=== PATIENT | female | born 1950 | race Caucasian/White ===

== ENCOUNTER 2017-06-27 09:27 | Day surgery (SDC) | payer MEDICARE ==
[~2017-06-27] VITALS: Ht 160 cm; Wt 103.9 kg
[~2017-06-27 09:27] MED LIST: 5-Htp50 MG; Alavert D-12 A1 EACH; Amitriptyline150 MG; CALCIUM CITRAT480 GM; CELE200; CHOL10002; CYAN500; Coq-1030 MG; Dapsone25 MG; EPIPEN 2-P0.3 MG/0.3; FLUO.01TC; MONT10T; OMEG1CAP30; PROAIR RESPICL90 MCG; ROSU10TA; SYNTHROID175 MCG; TELM80
== END 2017-06-27 12:20 | disposition home or self-care (01) ==
LOC: RAD 09:27 → ORSCSDS 09:27
PROVIDERS: Surgery
PROC: 0DJD8ZZ Inspection of Lower Intestinal Tract, Via Natural or Artificial Opening Endoscopic (ICD-10-PCS; principal; 2017-06-27 11:00)
DX: Z12.11 Encounter for screening for malignant neoplasm of colon (principal); I10 Essential (primary) hypertension; E78.5 Hyperlipidemia, unspecified; E03.9 Hypothyroidism, unspecified; E66.01 Morbid (severe) obesity due to excess calories; Z68.41 Body mass index [BMI] 40.0-44.9, adult; Z79.899 Other long term (current) drug therapy
CPT/HCPCS: 74270

== ENCOUNTER 2024-07-07 10:50 | Day surgery (SDC) | payer OTHER ==
[~2024-07-07] VITALS: Ht 162.6 cm; Wt 91.7 kg
[~2024-07-07 10:50] MED LIST changes: +Balanced Salt Epinephrine Irrigation Solution 500 mL IR SCH; +Diazepam 5 MG Tab PO PRN; +Diazepam 5 MG Tab PO SCH; +Lidocaine HCl/Pf 1% 5 ML VIAL ONE; +Lidocaine HCl/Pf 1% 5 ML VIAL XX SCH; +Moxifloxacin HCL 0.5 MG/0.1 ML 0.4MLSYR RIGHTEYE SCH; +Ondansetron 4 MG SoluTab MM PRN; +PHENYLEPHRINE\\TROPICAMIDE\\TETRACAINE OPHTHALMIC DILATING SOLN RIGHTEYE PRN; +Povidone-Iodine 450 DROP/30 ML Solution ONE; +Povidone-Iodine 450 DROP/30 ML Solution RIGHTEYE SCH; +Tetracaine HCl/Pf 0.5% Opth Soln 4 ml ONE
[2024-07-07] MEDS ORDERED: Diazepam 10 MG Tab ONE (11:49)
[2024-07-07] MEDS ORDERED: FURO80 PO (12:10)
[2024-07-07] MEDS ORDERED: METO100ER PO (12:10)
[2024-07-07] MEDS ORDERED: XARELTO20 M1 PO (12:11)
[2024-07-07] MEDS ORDERED: ESOM20 PO (12:12)
[2024-07-07] MEDS ORDERED: MECL25 (12:12)
[2024-07-07] MEDS ORDERED: REPATHA SU140 MG/1 M SQ (12:13)
--- NOTE | 2024-07-07 12:20 | NUR ---
07/07/24 1220 Ursula Casper CALL LIGHT WITHIN REACH. TETRACAINE IN RIGHT EYE AT 1209 AND PLEDGETT IN AT 1210
[2024-07-07] MEDS ORDERED: Ondansetron HCl 2 MG / ML 2ML Vial ONE (12:25)
[2024-07-07 13:11] VITALS: BP 167/62
--- NOTE | 2024-07-07 13:30 | NUR ---
07/07/24 8540 RAH GALARZA PT TO BATHROOM PRIOR TO DC
== END 2024-07-07 13:30 | disposition home or self-care (01) ==
LOC: ORSCSDS 10:50
PROVIDERS: Student in an Organized Health Care Education/Training Program
PROC: 08RJ3JZ Replacement of Right Lens with Synthetic Substitute, Percutaneous Approach (ICD-10-PCS; principal; 2024-07-07 12:30)
DX: H25.813 Combined forms of age-related cataract, bilateral (principal); I48.91 Unspecified atrial fibrillation; I10 Essential (primary) hypertension; J45.909 Unspecified asthma, uncomplicated; K21.9 Gastro-esophageal reflux disease without esophagitis; E66.9 Obesity, unspecified; Z68.34 Body mass index [BMI] 34.0-34.9, adult; Z79.899 Other long term (current) drug therapy
CPT/HCPCS: A9270; J2003; J2405; V2632

== ENCOUNTER 2024-07-14 10:21 | Day surgery (SDC) | payer OTHER ==
[~2024-07-14] VITALS: Ht 162.6 cm; Wt 92.0 kg
[~2024-07-14 10:21] MED LIST changes: -Diazepam 5 MG Tab PO PRN; -Diazepam 5 MG Tab PO SCH; +ESOM20 PO; +FURO80 PO; +MECL25; +METO100ER PO; +Moxifloxacin HCL 0.5 MG/0.1 ML 0.4MLSYR LEFTEYE SCH; -Moxifloxacin HCL 0.5 MG/0.1 ML 0.4MLSYR RIGHTEYE SCH; +NS 500 ML IV ONE; -Ondansetron 4 MG SoluTab MM PRN; +PHENYLEPHRINE\\TROPICAMIDE\\TETRACAINE OPHTHALMIC DILATING SOLN LEFTEYE PRN; -PHENYLEPHRINE\\TROPICAMIDE\\TETRACAINE OPHTHALMIC DILATING SOLN RIGHTEYE PRN; +Povidone-Iodine 450 DROP/30 ML Solution LEFTEYE SCH; -Povidone-Iodine 450 DROP/30 ML Solution RIGHTEYE SCH; +REPATHA SU140 MG/1 M SQ; +XARELTO20 M1 PO
[2024-07-14] MEDS ORDERED: NS 500 ML IV ONE (10:46)
--- NOTE | 2024-07-14 10:47 | NUR ---
07/14/24 1047 Ursula Casper CALL LIGHT WITHIN REACH. TETRACAINE IN LEFT EYE AT 1046 AND PLEDGETT IN AT 1047
[2024-07-14] MEDS ORDERED: FentaNYL Citrate 50 MCG/ML 2 ML Injection ONE (11:19)
[2024-07-14] MEDS ORDERED: Midazolam HCl 1MG / ML 2ML Vial ONE (11:19)
[2024-07-14 11:38] VITALS: BP 130/63
== END 2024-07-14 11:51 | disposition home or self-care (01) ==
LOC: ORSCSDS 10:21
PROVIDERS: Student in an Organized Health Care Education/Training Program
PROC: 08RK3JZ Replacement of Left Lens with Synthetic Substitute, Percutaneous Approach (ICD-10-PCS; principal; 2024-07-14 12:30)
DX: H25.812 Combined forms of age-related cataract, left eye (principal); Z96.1 Presence of intraocular lens; I10 Essential (primary) hypertension; I48.91 Unspecified atrial fibrillation; Z79.01 Long term (current) use of anticoagulants; J45.909 Unspecified asthma, uncomplicated; K21.9 Gastro-esophageal reflux disease without esophagitis; R42 Dizziness and giddiness; E66.9 Obesity, unspecified; Z68.34 Body mass index [BMI] 34.0-34.9, adult; Z79.899 Other long term (current) drug therapy
CPT/HCPCS: J2003; J2250; J3010; J7040; V2632